=== PATIENT | female | born 1955 | race African-American/Black ===

== ENCOUNTER 2019-10-16 12:07 | Outpatient (CLI) | payer BC, SELFPAY ==
[2019-10-16 12:27] LABS: Basophils Percent Auto 0.6 % (0.2-1.2); Eosinophils Absolute Auto 0.1 K/mm3 (0-0.3); Eosinophils Percent Auto 1.2 % (0-4.4); Hematocrit 42.4 % (37.0-47.0); Hemoglobin 13.8 g/dL (12.0-15.0); Immature Granulocyte Absolute 0.02 K/mm3 (0.00-0.031); Immature Granulocyte Percent A 0.3 % (0-0.5); Lymphocytes Absolute Auto 2.69 K/mm3 (0.9-3.2); Lymphocytes Percent Auto 41.6 % (18.3-44.2); Mean Corpuscular HGB Conc 32.5 g/dl (32-36); Mean Corpuscular Hemoglobin 31.9 pg (26-34); Mean Corpuscular Volume 98.1 fl (80-100); Mean Platelet Volume 10.4 fl (7.4-10.4); Monocytes Absolute Auto 0.6 K/mm3 (0.1-0.6); Monocytes Percent Auto 9.8 % (2.6-8.5); Neutrophils Percent Auto 46.5 % (45.5-73.1); Platelet Count Result 234 k/mm3 (150-375); Red Blood Count 4.32 M/mm3 (4.2-5.4); Red Cell Distribution Width 12.8 % (11.5-14.5); White Blood Count 6.5 K/mm3 (4.5-10.0)
[2019-10-16 16:58] LABS: Immunoglobulin A 323 mg/dL (70-400); Immunoglobulin G 1651 mg/dL (700-1600); Immunoglobulin M 53 mg/dL (40-230)
[2019-10-20 14:33] LABS: Kappa\\Lambda Light Chains 1.53 (0.26-1.65); Lambda Light Chain 13.5 mg/L (5.7-26.3)
[2019-10-20 22:35] LABS: Albumin 4.1 g/dL (3.8-4.8); Alpha 1 Globulin 0.2 g/dL (0.2-0.3); Alpha 2 Globulin 0.7 g/dL (0.5-0.9); Beta 1 Globulin 0.4 g/dL (0.4-0.6); Gamma Globulin 1.5 g/dL (0.8-1.7); Protein, Total 7.4 g/dL (6.1-8.1)
== END 2019-10-16 12:08 | disposition home or self-care (01) ==
LOC: ANHLAB 12:10
PROVIDERS: Visit Provider Internal Medicine Hematology & Oncology
DX: D47.2 Monoclonal gammopathy (principal)
CPT/HCPCS: 36415; 82784; 83883; 84155; 84165; 85025; 86334